=== PATIENT | female | born 1945 | race Two or more races ===

== ENCOUNTER 2023-09-02 13:31 | Outpatient (AMB) | payer MEDICARE, SELFPAY ==
--- NOTE | 2023-09-02 13:42 | HO.NEPHOV_ITS ---
HPI HPI Comments History of Present Illness Details I had the privilege of seeing Maria Luz in follow-up of her chronic kidney disease, hypertension and nephrolithiasis. She maintains good hydration and has not had any renal stones since last visit. She is compliant with her medications. She is taking potassium citrate as well as hydrochlorothiazide. She has no hematuria, dysuria, UTI, orthostatic symptoms, chest pain, shortness of breath, proximal nocturnal dyspnea, orthopnea, nausea, vomiting or diarrhea. She is tolerating all her medications. She is trying to keep up with low-sodium diet as well. She has not had any recent medication changes or hospital izations. She avoids nonsteroidal anti-inflammatories. [facility] Medical History (Updated 09/02/23 @ 13:47 by Gama Montague MD) Right renal atrophy Chronic kidney disease, stage 3a Hypertension Renal stone Family History (Updated 09/02/23 @ 14:28 by Naila Macias MA) Mother Cancer Brother Hypertension Social History (Updated 09/02/23 @ 13:26 by Naila Macias MA) Alcohol intake: never Patient Tobacco Use Status: Never used Tobacco Vital Signs 09/02/23 13:43 09/02/23 13:55 Height 4 ft 9 in Weight 135 lb 6 oz BMI 29.3 BP 140/82 H 130/80 Blood Pressure Location Lt brachial Position Sitting Pulse 80 Pulse Source Pulse Oximeter Pulse Oximetry (%) 97 Oxygen Delivery Method Room Air Physical Exam Vital Signs: Last Vital Signs Pulse 80 09/02/23 13:43 BP 130/80 09/02/23 13:55 Pulse Ox 97 09/02/23 13:43 Oxygen Delivery Method Room Air 09/02/23 13:43 BMI result Body Mass Index 29.3 Const General: comfortable and no acute distress Orientation/consciousness: patient oriented x3 HEENT Head: Yes normocephalic Mouth: Normal oral and palatal mucosa present Eyes EOM: EOMs intact bilaterally Neck Neck: Yes supple Resp Auscultation: clear to auscultation bilaterally Cardio Jugular venous distension: no JVD Rate: regular rate GI Palpation (GI): Soft to palpation Auscultation: normal bowel sounds General: Yes no CVA tenderness Back/Spine/Pelvis Back: no CVA tenderness Skin General skin exam: no rashes or lesions noted Neuro General: patient oriented x3 and moves all extremities Extrem General: Yes no pedal edema Assessment & Plan Assessment & Plan (1) Chronic kidney disease, stage 3a: Code(s): N18.31 - Chronic kidney disease, stage 3a (2) Hypertension: Code(s): I10 - Essential (primary) hypertension Qualifiers: Hypertension type: secondary to other renal disorders Qualified Code(s): I15.1 - Hypertension secondary to other renal disorders (3) Renal stone: Code(s): N20.0 - Calculus of kidney Plan Maria Luz has smaller kidney on the right. Her serum creatinine has been stable. Her blood pressure is at goal. She has not had any recent nephrolithiasis. She has history of low urinary citrate. She takes potassium citrate. She is tolerating hydrochlorothiazide. His serum calcium has been normal without any electrolyte disturbances and stable serum creatinine. She does not take any excess salt in the diet. She is encouraged to maintain good hydration. She should cut back animal protein and eat more fruits and vegetables. I did not make any medication changes today. Follow-up blood work ordered. Answered all questions. Follow-up given. 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
[2023-09-02 13:43] VITALS: BP 140/82; PULSE 80; O2SAT 97; BMI 29.3
[2023-09-02 13:55] VITALS: BP 130/80
== END 2023-09-02 13:59 | disposition home or self-care (01) ==
PROVIDERS: PCP Family Medicine; Visit Provider Internal Medicine Nephrology
DX: N18.31 Chronic kidney disease, stage 3a (principal); I15.1 Hypertension secondary to other renal disorders; N20.0 Calculus of kidney
CPT/HCPCS: 99213

== ENCOUNTER → 2023-09-02 13:31 | Outpatient (BNVA) | payer MEDICARE, SELFPAY | PROVIDERS: PCP Family Medicine; Visit Provider Internal Medicine Nephrology | DX: I15.1 Hypertension secondary to other renal disorders (principal); N18.31 Chronic kidney disease, stage 3a; N20.0 Calculus of kidney | CPT/HCPCS: 99212 ==

== ENCOUNTER 2024-01-06 10:11 | Outpatient (AMB) | payer MEDICARE, SELFPAY ==
[2024-01-06 10:26] VITALS: BP 120/70; PULSE 82; O2SAT 98; BMI 29.9
--- NOTE | 2024-01-06 10:26 | HO.NEPHOV_ITS ---
HPI HPI Comments History of Present Illness Details I had the privilege of seeing Maria Luz in follow-up of her chronic kidney disease, hypertension and nephrolithiasis. She maintains good hydration and has not had any renal stones since last visit. She is compliant with her medications. She is taking potassium citrate as well as hydrochlorothiazide. She has no hematuria, dysuria, UTI, orthostatic symptoms, chest pain, shortness of breath, proximal nocturnal dyspnea, orthopnea, nausea, vomiting or diarrhea. She is tolerating all her medications. She is trying to keep up with low-sodium diet as well. She has not had any recent medication changes or hospital izations. She avoids nonsteroidal anti-inflammatories. [facility] Medical History (Updated 09/02/23 @ 13:47 by Gama Montague MD) Right renal atrophy Chronic kidney disease, stage 3a Hypertension Renal stone Family History Mother Cancer Brother Hypertension Social History Alcohol intake: never Patient Tobacco Use Status: Never used Tobacco Vital Signs 01/06/24 10:26 Height 4 ft 9 in Weight 138 lb 4 oz BMI 29.9 BP 120/70 Blood Pressure Location Lt brachial Position Sitting Pulse 82 Pulse Source Pulse Oximeter Pulse Oximetry (%) 98 Oxygen Delivery Method Room Air Physical Exam Vital Signs: Last Vital Signs Pulse 82 01/06/24 10:26 BP 140/70 H 01/06/24 10:26 Pulse Ox 98 01/06/24 10:26 Oxygen Delivery Method Room Air 01/06/24 10:26 BMI result Body Mass Index 29.9 Const General: comfortable and no acute distress Orientation/consciousness: patient oriented x3 HEENT Head: Yes normocephalic Mouth: Normal oral and palatal mucosa present Eyes EOM: EOMs intact bilaterally Neck Neck: Yes supple Resp Auscultation: clear to auscultation bilaterally Cardio Jugular venous distension: no JVD Rate: regular rate GI Palpation (GI): Soft to palpation Auscultation: normal bowel sounds General: Yes no CVA tenderness Back/Spine/Pelvis Back: no CVA tenderness Skin General skin exam: no rashes or lesions noted Neuro General: patient oriented x3 and moves all extremities Extrem General: Yes no pedal edema Assessment & Plan Assessment & Plan (1) Chronic kidney disease, stage 3a: Code(s): N18.31 - Chronic kidney disease, stage 3a (2) Hypertension: Code(s): I10 - Essential (primary) hypertension Qualifiers: Hypertension type: secondary to other renal disorders Qualified Code(s): I15.1 - Hypertension secondary to other renal disorders (3) Renal stone: Code(s): N20.0 - Calculus of kidney Plan Maria Luz has smaller kidney on the right. Her serum creatinine has been stable. Her blood pressure is at goal. She has not had any recent nephrolithiasis. She has history of low urinary citrate. She takes potassium citrate. She is tolerating hydrochlorothiazide. His serum calcium has been normal without any electrolyte disturbances and stable serum creatinine. She does not take any excess salt in the diet. She is encouraged to maintain good hydration. She should cut back animal protein and eat more fruits and vegetables. I did not make any medication changes today. Follow-up blood work ordered. Answered all questions. Follow-up given Orders: Orders Creatinine Today I15.1 - Hypertension secondary to other renal disorders, N18.31 - Chronic kidney disease, stage 3a, N20.0 - Calculus of kidney Blood Urea Nitrogen Today I15.1 - Hypertension secondary to other renal disorders, N18.31 - Chronic kidney disease, stage 3a, N20.0 - Calculus of kidney Calcium Today I15.1 - Hypertension secondary to other renal disorders, N18.31 - Chronic kidney disease, stage 3a, N20.0 - Calculus of kidney Electrolytes Today I15.1 - Hypertension secondary to other renal disorders, N18.31 - Chronic kidney disease, stage 3a, N20.0 - Calculus of kidney Coding Level of Care Code Est Pt Level 4 (34364) Diagnoses Chronic kidney disease, stage 3a N18.31 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
== END 2024-01-06 10:54 | disposition home or self-care (01) ==
PROVIDERS: PCP Family Medicine; Visit Provider Internal Medicine Nephrology
DX: N18.31 Chronic kidney disease, stage 3a (principal); I15.1 Hypertension secondary to other renal disorders; N20.0 Calculus of kidney
CPT/HCPCS: 99214

== ENCOUNTER → 2024-01-06 10:11 | Outpatient (BNVA) | payer MEDICARE, SELFPAY | PROVIDERS: PCP Family Medicine; Visit Provider Internal Medicine Nephrology | DX: N18.31 Chronic kidney disease, stage 3a (principal); I15.1 Hypertension secondary to other renal disorders; N20.0 Calculus of kidney | CPT/HCPCS: 99212 ==

== ENCOUNTER 2024-07-13 11:16 | Outpatient (REF) | payer MEDICARE, SELFPAY ==
[2024-07-13 13:38] LABS: Anion Gap 12 (12-20); Blood Urea Nitrogen 17 mg/dL (9-16); Calcium 9.6 mg/dL (8.4-10.2); Carbon Dioxide 28 mmol/L (22-29); Chloride 107 mmol/L (96-108); Estimated Glomerular Filt Rate 41; Sodium 143 mmol/L (135-145)
== END 2024-07-13 11:17 | disposition home or self-care (01) ==
LOC: HO.HKASLDS 11:16
PROVIDERS: Visit Provider Internal Medicine Nephrology
DX: N20.0 Calculus of kidney (principal); I15.1 Hypertension secondary to other renal disorders; N18.31 Chronic kidney disease, stage 3a
CPT/HCPCS: 36415; 80051; 82310; 82565; 84520

== ENCOUNTER 2024-07-20 10:51 | Outpatient (AMB) | payer MEDICARE, SELFPAY ==
--- NOTE | 2024-07-20 11:08 | HO.NEPHOV_ITS ---
Vital Signs 07/20/24 11:10 Height 4 ft 9 in Weight 141 lb BMI 30.5 BP 132/70 Blood Pressure Location Lt brachial Position Sitting Pulse 73 Pulse Source Pulse Oximeter Pulse Oximetry (%) 99 Oxygen Delivery Method Room Air Intake Visit Reasons: 6 mon follow up-[facility] Poultry Picking Machine Tender Required: Yes Poultry Picking Machine Tender Language: Recovery Auditor Services: Poultry Picking Machine Tender Present Poultry Picking Machine Tender Name: Malvin [id number] Accompanied by: Self / Same As Patient Allergies amoxicillin Allergy (Verified 07/20/24 11:13) Unknown aspirin Allergy (Verified 07/20/24 11:13) Unknown Iodinated Contrast Media Allergy (Verified 07/20/24 11:13) Unknown levofloxacin Allergy (Verified 07/20/24 11:13) Unknown Penicillins Allergy (Verified 07/20/24 11:13) Unknown HPI Comments Details: I had the privilege of seeing Maria Luz in follow-up of her chronic kidney disease, hypertension and nephrolithiasis. She maintains good hydration and has not had any renal stones since last visit. She is compliant with her medications. She is taking potassium citrate as well as hydrochlorothiazide. She has no hematuria, dysuria, UTI, orthostatic symptoms, chest pain, shortness of breath, proximal nocturnal dyspnea, orthopnea, nausea, vomiting or diarrhea. She is tolerating all her medications. She is trying to keep up with low-sodium diet as well. She avoids nonsteroidal anti-inflammatories [facility] Medical History (Updated 07/20/24 @ 11:32 by Gama Montague MD) Right renal atrophy Chronic kidney disease, stage 3a Hypertension Renal stone Family History Mother Cancer Brother Hypertension Social History Alcohol intake: never Patient Tobacco Use Status: Never used Tobacco Review of Systems Const All systems reviewed & are unremarkable except as noted in HPI and below Physical Exam Vital Signs: Last Vital Signs Pulse 73 07/20/24 11:10 BP 132/70 07/20/24 11:10 Pulse Ox 99 07/20/24 11:10 Oxygen Delivery Method Room Air 07/20/24 11:10 BMI result Body Mass Index 30.5 Const General: comfortable and no acute distress Orientation/consciousness: patient oriented x3 HEENT Head: Yes normocephalic Mouth: Normal oral and palatal mucosa present Eyes EOM: EOMs intact bilaterally Neck Neck: Yes supple Resp Auscultation: clear to auscultation bilaterally Cardio Jugular venous distension: no JVD Rate: regular rate GI Palpation (GI): Soft to palpation Auscultation: normal bowel sounds General: Yes no CVA tenderness Back/Spine/Pelvis Back: no CVA tenderness Skin General skin exam: no rashes or lesions noted Neuro General: patient oriented x3 and moves all extremities Extrem General: Yes no pedal edema Results Reviewed Nephrology Results: Sodium 143 mmol/L (135-145) 07/13/24 Potassium 4.0 mmol/L (3.3-5.1) 07/13/24 Chloride 107 mmol/L (96-108) 07/13/24 Carbon Dioxide 28 mmol/L (22-29) 07/13/24 BUN 17 mg/dL (9-16) H 07/13/24 Creatinine 1.26 mg/dL (0.5-1.4) 07/13/24 Calcium 9.6 mg/dL (8.4-10.2) 07/13/24 Assessment & Plan Assessment & Plan (1) Chronic kidney disease, stage 3a: Code(s): N18.31 - Chronic kidney disease, stage 3a Category: Medical (2) Hypertension: Code(s): I10 - Essential (primary) hypertension Category: Medical Qualifiers: Hypertension type: secondary to other renal disorders Qualified Code(s): I15.1 - Hypertension secondary to other renal disorders (3) Renal stone: Code(s): N20.0 - Calculus of kidney Category: Medical (4) Small right kidney: Code(s): N27.0 - Small kidney, unilateral Category: Medical Plan Maria Luz has smaller kidney on the right. Her serum creatinine has been stable. Her blood pressure is at goal. She has not had any recent nephrolithiasis. She has history of low urinary citrate. She takes potassium citrate. She is tolerating hydrochlorothiazide. His serum calcium has been normal without any electrolyte disturbances and stable serum creatinine. She does not take any excess salt in the diet. She is encouraged to maintain good hydration. She should cut back animal protein and eat more fruits and vegetables. I did not make any medication changes today. Follow-up blood work ordered. Orders: Orders Creatinine 6 Months I15.1 - Hypertension secondary to other renal disorders, N18.31 - Chronic kidney disease, stage 3a, N20.0 - Calculus of kidney, N27.0 - Small kidney, unilateral Electrolytes 6 Months I15.1 - Hypertension secondary to other renal disorders, N18.31 - Chronic kidney disease, stage 3a, N20.0 - Calculus of kidney, N27.0 - Small kidney, unilateral Calcium 6 Months I15.1 - Hypertension secondary to other renal disorders, N18.31 - Chronic kidney disease, stage 3a, N20.0 - Calculus of kidney, N27.0 - Small kidney, unilateral Blood Urea Nitrogen 6 Months I15.1 - Hypertension secondary to other renal disorders, N18.31 - Chronic kidney disease, stage 3a, N20.0 - Calculus of kidney, N27.0 - Small kidney, unilateral Coding Level of Care Code Est Pt Level 4 (78770) Diagnoses Chronic kidney disease, stage 3a N18.31 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
[2024-07-20 11:10] VITALS: BP 132/70; PULSE 73; O2SAT 99; BMI 30.5
== END 2024-07-20 11:36 | disposition home or self-care (01) ==
LOC: HO.HKAS 10:52
PROVIDERS: PCP Family Medicine; Visit Provider Internal Medicine Nephrology
DX: N18.31 Chronic kidney disease, stage 3a (principal); I15.1 Hypertension secondary to other renal disorders; N20.0 Calculus of kidney; N27.0 Small kidney, unilateral
CPT/HCPCS: 99214

== ENCOUNTER → 2024-07-20 10:51 | Outpatient (BNVA) | payer MEDICARE, SELFPAY | PROVIDERS: PCP Family Medicine; Visit Provider Internal Medicine Nephrology | DX: N20.0 Calculus of kidney (principal); I15.1 Hypertension secondary to other renal disorders; N18.31 Chronic kidney disease, stage 3a; N27.0 Small kidney, unilateral | CPT/HCPCS: 99212 ==

== ENCOUNTER 2025-01-13 12:55 | Outpatient (REF) | payer MEDICARE, MEDICAID, SELFPAY ==
[2025-01-13 18:11] LABS: Anion Gap 12 (12-20); Blood Urea Nitrogen 17 mg/dL (9-16); Calcium 9.8 mg/dL (8.4-10.2); Carbon Dioxide 29 mmol/L (22-29); Chloride 104 mmol/L (96-108); Estimated Glomerular Filt Rate 51; Potassium 4.1 mmol/L (3.3-5.1); Sodium 141 mmol/L (135-145)
== END 2025-01-13 12:56 | disposition home or self-care (01) ==
LOC: HO.HKASLDS 12:55
PROVIDERS: Visit Provider Internal Medicine Nephrology
DX: N27.0 Small kidney, unilateral (principal); N20.0 Calculus of kidney; I15.1 Hypertension secondary to other renal disorders; N18.31 Chronic kidney disease, stage 3a
CPT/HCPCS: 36415; 80051; 82310; 82565; 84520

== ENCOUNTER 2025-01-18 10:23 | Outpatient (AMB) | payer MEDICARE, MEDICAID, SELFPAY ==
--- NOTE | 2025-01-18 10:45 | HO.NEPHOV ---
Vital Signs 01/18/25 10:46 Height 4 ft 9 in Weight 139 lb 6 oz BMI 30.2 BP 124/78 Blood Pressure Location Lt brachial Position Sitting Pulse 73 Pulse Source Pulse Oximeter Pulse Oximetry (%) 97 Oxygen Delivery Method Room Air Intake Visit Reasons: 6 mon follow up-Conf Fitter Type Bar And Segment Required: Yes Fitter Type Bar And Segment Language: Solar Installation Foreman Services: Fitter Type Bar And Segment Offered & Declined ([facility] discharge planner services refused ) Accompanied by: Self / Same As Patient Allergies amoxicillin Allergy (Verified 01/18/25 10:45) Unknown aspirin Allergy (Verified 01/18/25 10:45) Unknown Iodinated Contrast Media Allergy (Verified 01/18/25 10:45) Unknown levofloxacin Allergy (Verified 01/18/25 10:45) Unknown Penicillins Allergy (Verified 01/18/25 10:45) Unknown HPI Comments Details: Maria Luz was seen in follow-up of her chronic kidney disease, hypertension and nephrolithiasis. She maintains good hydration and has not had any renal stones since last visit. She is compliant with her medications. She is taking potassium citrate as well as hydrochlorothiazide. She has no hematuria, dysuria, UTI, orthostatic symptoms, chest pain, shortness of breath, proximal nocturnal dyspnea, orthopnea, nausea, vomiting or diarrhea. She is tolerating all her medications. She is trying to keep up with low-sodium diet as well. She avoids nonsteroidal anti-inflammatories [facility] Medical History (Updated 07/20/24 @ 11:32 by Gama Montague MD) Right renal atrophy Chronic kidney disease, stage 3a Hypertension Renal stone Family History Mother Cancer Brother Hypertension Social History Alcohol intake: never Patient Tobacco Use Status: Never used Tobacco Review of Systems Const All systems reviewed & are unremarkable except as noted in HPI and below Physical Exam Vital Signs: Last Vital Signs Pulse 73 01/18/25 10:46 BP 124/78 01/18/25 10:46 Pulse Ox 97 01/18/25 10:46 Oxygen Delivery Method Room Air 01/18/25 10:46 BMI result Body Mass Index 30.2 Const General: comfortable and no acute distress Orientation/consciousness: patient oriented x3 HEENT Head: Yes normocephalic Mouth: Normal oral and palatal mucosa present Eyes EOM: EOMs intact bilaterally Neck Neck: Yes supple Resp Auscultation: clear to auscultation bilaterally Cardio Jugular venous distension: no JVD Rate: regular rate GI Palpation (GI): Soft to palpation Auscultation: normal bowel sounds General: Yes no CVA tenderness Back/Spine/Pelvis Back: no CVA tenderness Skin General skin exam: no rashes or lesions noted Neuro General: patient oriented x3 and moves all extremities Extrem General: Yes no pedal edema Results Reviewed Nephrology Results: Sodium 141 mmol/L (135-145) 01/13/25 Potassium 4.1 mmol/L (3.3-5.1) 01/13/25 Chloride 104 mmol/L (96-108) 01/13/25 Carbon Dioxide 29 mmol/L (22-29) 01/13/25 BUN 17 mg/dL (9-16) H 01/13/25 Creatinine 1.04 mg/dL (0.5-1.4) 01/13/25 Calcium 9.8 mg/dL (8.4-10.2) 01/13/25 Assessment & Plan Assessment & Plan (1) Small right kidney: Code(s): N27.0 - Small kidney, unilateral Category: Medical (2) Renal stone: Code(s): N20.0 - Calculus of kidney Category: Medical (3) Hypertension: Code(s): I10 - Essential (primary) hypertension Category: Medical Qualifiers: Hypertension type: secondary to other renal disorders Qualified Code(s): I15.1 - Hypertension secondary to other renal disorders (4) Chronic kidney disease, stage 3a: Code(s): N18.31 - Chronic kidney disease, stage 3a Category: Medical Plan Maria Luz has small kidney on the right. Her serum creatinine has been stable. Her blood pressure is at goal. She has not had any recent nephrolithiasis. She has history of low urinary citrate. She takes potassium citrate. She is tolerating hydrochlorothiazide. His serum calcium has been normal without any electrolyte disturbances and stable serum creatinine. She does not take any excess salt in the diet. She is encouraged to maintain good hydration. She should cut back animal protein and eat more fruits and vegetables. I did not make any medication changes today. Follow-up blood work ordered. Orders: Orders Blood Urea Nitrogen 6 Months I15.1 - Hypertension secondary to other renal disorders, N18.31 - Chronic kidney disease, stage 3a, N20.0 - Calculus of kidney, N27.0 - Small kidney, unilateral Creatinine 6 Months I15.1 - Hypertension secondary to other renal disorders, N18.31 - Chronic kidney disease, stage 3a, N20.0 - Calculus of kidney, N27.0 - Small kidney, unilateral Electrolytes 6 Months I15.1 - Hypertension secondary to other renal disorders, N18.31 - Chronic kidney disease, stage 3a, N20.0 - Calculus of kidney, N27.0 - Small kidney, unilateral Coding Level of Care Code Est Pt Level 4 (19369) Diagnoses Small right kidney N27.0 Renal stone N20.0 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
[2025-01-18 10:46] VITALS: BP 124/78; PULSE 73; O2SAT 97; BMI 30.2
--- OUTSIDE RECORDS SUMMARY | 2025-01-18 11:57 | XMS_ITS | Clinical Summary ---
Author Organization [facility] Address [address] [facility] [address] [place] [address] Phone Care Team Providers Care Healthcare Insurance Sales Agent Name Role Phone Irma Quan MD Primary Care Provider Allergies Active Allergy Reactions Criticality Noted Date Comments Amoxicillin 01/04/2021 Aspirin 01/04/2021 Iodinated Contrast Media 01/04/2021 Levofloxacin 01/04/2021 Penicillin G 01/04/2021 Medications albuterol HFA (PROVENTIL HFA;VENTOLIN HFA) 108 (90 Base) MCG/ACT inhaler Inhale 2 puffs 4 (four) times a day 11/17/2015 Active aspirin (ST TAYLER) 81 MG EC tablet Take 1 tablet by mouth 1 (one) time each day Active atorvastatin (LIPITOR) 40 MG tablet Take 1 tablet by mouth at bed time 11/17/2015 Active hydroCHLOROthia zide (HYDRODIURIL) 25 MG tablet Take 1 tablet by mouth 1 (one) time each day 11/17/2015 Active levothyroxine (SYNTHROID, LEVOTHROID) 25 MCG tablet Take 1 tablet by mouth 1 (one) time each day 12/15/2014 Active potassium citrate (UROCIT-K) 10 MEQ (1080 MG) CR tablet Take 2 tablets by mouth 2 (two) times a day 12/07/2015 Active montelukast (SINGULAIR) 10 MG tablet Take 10 mg by mouth every night Active Blood Pressure kit 1 Device 1 (one) time each day 1 each 01/04/2021 Active alendronate (FOSAMAX) 70 MG tablet Take 1 tablet by mouth per week 05/07/2022 Active lisinopril 10 MG tablet Take 1 tablet by mouth 1 (one) time each day 08/08/2022 Active Calcium Carb-Cholecalci ferol 600-20 MG-MCG chewable tablet Chew 1 tablet 2 (two) times a day 01/28/2023 Active Active Problems Problem Noted Date Diagnosed Date Osteoporosis 06/13/2022 Patient care statuses 03/12/2022 Hyperlipidemia 03/12/2022 Hypertension 08/21/2021 Atrophy of kidney 01/04/2021 Renal stone 01/04/2021 Stage 3a chronic kidney disease 01/04/2021 Essential hypertension 01/04/2021 Resolved Problems Problem Noted Date Diagnosed Date Resolved Date Hypothyroidism 01/04/2021 01/04/2021 Osteopenia 01/04/2021 01/04/2021 Asthma 01/04/2021 01/04/2021 Benign neoplasm of colon 01/04/2021 Immunizations Immunization Administration Dates Next Due Influenza, Unspecified 06/02/2019,08/11/2018, Pneumococcal Conjugate 13-Valent 01/13/2017 Pneumococcal Polysaccharide 07/28/2012 Td, Unspecified 05/22/2011 Family History Medical History Relation Comments Kidney disease Child Heart disease Father CAD Hypertension Father Cancer Mother Hypertension Mother Relation Status Comments Child Father Mother Social History Tobacco Use Types Packs/Day Years Used Date Smoking Tobacco: Never Smokeless Tobacco: Never Tobacco Cessation:Counseling Given: Not Answered Alcohol Use Standard Drinks/Week Comments No 0 (1 standard drink = 0.6 oz pur e alcohol) Comments Unknown Sex and Gender Information Value Date Recorded Sex Assigned at Not on file Legal Sex Female 5:21 PM EST Gender Identity Not on file Sexual Orientation Not on file Last Filed Vital Signs Vital Sign Reading Time Taken Comments Blood Pressure 124/60 03/03/2023 4:30 PM EDT Pulse 77 03/03/2023 4:30 PM EDT Temperature - - Respiratory Rate - - Oxygen Saturation 97% 03/12/2022 1:28 PM EDT Inhaled Oxygen Concentration - - Weight 63.5 kg (140 lb) 03/03/2023 4:30 PM EDT Height 147.3 cm (4' 10 ) 01/04/2020 12:00 PM EDT Body Mass Index 29.26 01/04/2020 12:00 PM EDT Plan of Treatment Health Maintenance Due Date Last Done Comments Influenza Vaccine (Season Ended) 2025 06/02/2019, 08/11/2018, 06/09/2017 Pneumococcal Vaccine: 50+ Years Completed 01/13/2017, 07/28/2012 Pneumococcal Vaccine: Peds (0 to 5 Years) and At-Risk Patients (6 to 49 Years) Discontinued 01/13/2017, 07/28/2012 Hepatitis B Vaccine Aged Out No longe r eligible based on patient's age to complete this topic Care Teams Healthcare Insurance Sales Agent Relationship Specialty Start Date End Date Irma Quan MD [address] [place] [address] PCP - General Family Medicine 08/21/21
== END 2025-01-18 11:06 | disposition home or self-care (01) ==
LOC: HO.HKAS 10:24
PROVIDERS: PCP Family Medicine; Visit Provider Internal Medicine Nephrology
DX: N27.0 Small kidney, unilateral (principal); N20.0 Calculus of kidney; I15.1 Hypertension secondary to other renal disorders; N18.31 Chronic kidney disease, stage 3a
CPT/HCPCS: 99214

== ENCOUNTER → 2025-01-18 10:23 | Outpatient (BNVA) | payer MEDICARE, MEDICAID, SELFPAY | PROVIDERS: PCP Family Medicine; Visit Provider Internal Medicine Nephrology | DX: I15.1 Hypertension secondary to other renal disorders (principal); N18.9 Chronic kidney disease, unspecified; N27.0 Small kidney, unilateral; N20.0 Calculus of kidney; N18.31 Chronic kidney disease, stage 3a | CPT/HCPCS: 99212 ==

== ENCOUNTER 2025-07-11 11:00 | Outpatient (REF) | payer OTHER, SELFPAY ==
--- OUTSIDE RECORDS SUMMARY | 2025-07-11 13:31 | XMS_ITS | Clinical Summary ---
Author Organization [facility] Address [address] [facility] [address] [place] [address] Phone Care Team Providers Care Site Damage Prevention Technician Name Role Phone Irma Quan MD Primary Care Provider [phone] Allergies Active Allergy Reactions Criticality Noted Date [...] Due Date Last Done Comments Influenza Vaccine (#1) 2025 9, 08/11/2018, 06/09/2017 Pneumococcal Vaccine: 50+ Years Completed 01/13/2017, 07/28/2012 Pneumococcal Vaccine: Peds (0 to 5 Years) and At-Risk Patients (6 to 49 Years) Discontinued 01/13/2017, 07/28/2012 Hepatitis B Vaccine Aged Out No longe r eligible based on patient's age to complete this topic Care Teams Site Damage Prevention Technician Relationship Specialty Start Date End Date Irma Quan MD [address] [place] [address] PCP - General Family Medicine 08/21/21
[2025-07-11 18:52] LABS: Anion Gap 12 (12-20); Blood Urea Nitrogen 11 mg/dL (9-16); Carbon Dioxide 31 mmol/L (22-29); Chloride 102 mmol/L (96-108); Estimated Glomerular Filt Rate 50; Potassium 3.6 mmol/L (3.3-5.1); Sodium 141 mmol/L (135-145)
== END 2025-07-11 11:01 | disposition home or self-care (01) ==
LOC: HO.HKASLDS 11:00
PROVIDERS: PCP Family Medicine; Visit Provider Internal Medicine Nephrology
DX: I12.9 Hypertensive chronic kidney disease with stage 1 through stage 4 chronic kidney disease, or unspecified chronic kidney disease (principal); N18.31 Chronic kidney disease, stage 3a; N20.0 Calculus of kidney; N27.0 Small kidney, unilateral
CPT/HCPCS: 36415; 80051; 82565; 84520

== ENCOUNTER 2025-07-19 10:13 | Outpatient (AMB) | payer MEDICARE, MEDICAID, SELFPAY ==
--- NOTE | 2025-07-19 10:24 | HO.NEPHOV_ITS ---
Vital Signs 07/19/25 10:25 Height 4 ft 9 in Weight 137 lb 6 oz BMI 29.7 BP 170/80 H Blood Pressure Location Lt brachial Position Sitting Pulse 84 Pulse Source Pulse Oximeter Pulse Oximetry (%) 97 Oxygen Delivery Method Room Air Intake Visit Reasons: 6mon follow-up w/labs-Conf Assistant Speech Language Pathologist Required: Yes Assistant Speech Language Pathologist Language: Music Critic Services: Assistant Speech Language Pathologist Offered & Declined ([facility] [place] Assistant Speech Language Pathologist services refused ) Information Interpreted: clinical only Accompanied by: Self / Same As Patient Allergies amoxicillin Allergy (Verified 07/19/25 10:25) Unknown aspirin Allergy (Verified 07/19/25 10:25) Unknown Iodinated Contrast Media Allergy (Verified 07/19/25 10:25) Unknown levofloxacin Allergy (Verified 07/19/25 10:25) Unknown Penicillins Allergy (Verified 07/19/25 10:) Unknown HPI Comments Details: Maria Luz was seen in follow-up of her chronic kidney disease, hypertension and nephrolithiasis. She maintains good hydration and has not had any renal stones since last visit. She is compliant with her medications. She is taking potassium citrate as well as hydrochlorothiazide. She has no hematuria, dysuria, UTI, orthostatic symptoms, chest pain, shortness of breath, proximal nocturnal dyspnea, orthopnea, nausea, vomiting or diarrhea. She is tolerating all her medications. She is trying to keep up with low-sodium diet as well. She avoids nonsteroidal anti-inflammatories. She has not taken her medications this morning [facility] Medical History (Updated 07/20/24 @ 11:32 by Gama Montague MD) Right renal atrophy Chronic kidney disease, stage 3a Hypertension Renal stone Family History Mother Cancer Brother Hypertension Social History Alcohol intake: never Patient Tobacco Use Status: Never used Tobacco Review of Systems Const All systems reviewed & are unremarkable except as noted in HPI and below Physical Exam Vital Signs: Last Vital Signs Pulse 84 07/19/25 10:25 BP 170/80 H 07/19/25 10:25 Pulse Ox 97 07/19/25 10:25 Oxygen Delivery Method Room Air 07/19/25 10:25 BMI result Body Mass Index 29.7 Const General: comfortable and no acute distress Orientation/consciousness: patient oriented x3 HEENT Head: Yes normocephalic Mouth: Normal oral and palatal mucosa present Eyes EOM: EOMs intact bilaterally Neck Neck: Yes supple Resp Auscultation: clear to auscultation bilaterally Cardio Jugular venous distension: no JVD Rate: regular rate GI Palpation (GI): Soft to palpation Auscultation: normal bowel sounds General: Yes no CVA tenderness Back/Spine/Pelvis Back: no CVA tenderness Skin General skin exam: no rashes or lesions noted Neuro General: patient oriented x3 and moves all extremities Extrem General: Yes no pedal edema Results Reviewed Nephrology Results: Sodium, (135-145) 141 mmol/L 07/11/25 Potassium, (3.3-5.1) 3.6 mmol/L 07/11/25 Chloride, (96-108) 102 mmol/L 07/11/25 Carbon Dioxide, (22-29) 31 mmol/L H 07/11/25 BUN, (9-16) 11 mg/dL 07/11/25 Creatinine, (0.5-1.4) 1.07 mg/dL 07/11/25 Calcium, (8.4-10.2) 9.8 mg/dL 01/13/25 Assessment & Plan Assessment & Plan (1) Chronic kidney disease, stage 3a: Code(s): N18.31 - Chronic kidney disease, stage 3a Category: Medical (2) Small right kidney: Code(s): N27.0 - Small kidney, unilateral Category: Medical (3) Renal stone: Code(s): N20.0 - Calculus of kidney Category: Medical (4) Hypertension: Code(s): I10 - Essential (primary) hypertension Category: Medical Qualifiers: Hypertension type: secondary to other renal disorders Qualified Code(s): I15.1 - Hypertension secondary to other renal disorders Plan Maria Luz has small kidney on the right. Her serum creatinine has been stable. Her blood pressure is at goal at home . She has not had any recent nephrolithiasis. She has history of low urinary citrate. She takes potassium citrate. She is tolerating hydrochlorothiazide. His serum calcium has been normal without any electrolyte disturbances and stable serum creatinine. She does not take any excess salt in the diet. She is encouraged to maintain good hydration. She should cut back animal protein and eat more fruits and vegetables. I did not make any medication changes today. Follow-up blood work ordered. Orders: Orders Creatinine 6 Months I15.1 - Hypertension secondary to other renal disorders, N18.31 - Chronic kidney disease, stage 3a, N20.0 - Calculus of kidney, N27.0 - Small kidney, unilateral Blood Urea Nitrogen 6 Months I15.1 - Hypertension secondary to other renal disorders, N18.31 - Chronic kidney disease, stage 3a, N20.0 - Calculus of kidney, N27.0 - Small kidney, unilateral Electrolytes 6 Months I15.1 - Hypertension secondary to other renal disorders, N18.31 - Chronic kidney disease, stage 3a, N20.0 - Calculus of kidney, N27.0 - Small kidney, unilateral Coding Level of Care Code Est Pt Level 4 (51089) Diagnoses Chronic kidney disease, stage 3a N18.31 Small right kidney N27.0 Renal stone N20.0 Hypertension secondary to other renal disorders I15.1 Hypertension type: secondary to other renal disorders
[2025-07-19 10:25] VITALS: BP 170/80; PULSE 84; O2SAT 97; BMI 29.7
== END 2025-07-19 10:36 | disposition home or self-care (01) ==
LOC: HO.HKAS 10:13
PROVIDERS: PCP Family Medicine; Visit Provider Internal Medicine Nephrology
DX: N18.31 Chronic kidney disease, stage 3a (principal); N27.0 Small kidney, unilateral; N20.0 Calculus of kidney; I15.1 Hypertension secondary to other renal disorders
CPT/HCPCS: 99214

== ENCOUNTER → 2025-07-19 10:13 | Outpatient (BNVA) | payer OTHER, SELFPAY | PROVIDERS: PCP Family Medicine; Visit Provider Internal Medicine Nephrology | DX: N18.31 Chronic kidney disease, stage 3a (principal); N27.0 Small kidney, unilateral; N20.0 Calculus of kidney; I15.1 Hypertension secondary to other renal disorders | CPT/HCPCS: 99212 ==